=== PATIENT | male | born 1995 | race Caucasian/White ===

== ENCOUNTER 2018-12-17 02:17 | Emergency (ER) | payer MEDICAID ==
[~2018-12-17] VITALS: Ht 182.9 cm; Wt 75.0 kg
[2018-12-17 02:25] VITALS: BP 118/61
== END 2018-12-17 03:04 | disposition home or self-care (01) ==
LOC: ED 02:43
DX: T14.8XXA Other injury of unspecified body region, initial encounter (principal); F19.10 Other psychoactive substance abuse, uncomplicated
CPT/HCPCS: 99283